=== PATIENT | female | born 1975 | race Caucasian/White ===

== ENCOUNTER 2023-12-23 06:57 | Day surgery (SDC) | payer BC ==
[2023-12-20 16:00] LABS: Anion Gap 6.6 mEq/L (5.0-15.0); Potassium 3.6 mEq/L (3.5-5.1)
--- NOTE | 2023-12-22 16:21 | EKG ---
Test Date: 2023-12-20 Test Time: 15:32:19 Lmft: ET MEASUREMENT RESULTS: Intervals: Rate: 72 CO: 124 QRSD: 82 QT: 386 QTc: 422 Dorothy: P: 36 CO: 124 QRS: 76 T: 71 INTERPRETIVE STATEMENTS: Normal sinus rhythm Normal ECG No previous ECG available for comparison Electronically Signed On 12-22-23 16:17:22 CDT by Pancho Avila
[2023-12-23] MEDS: Ringers Lactate 1,000 ML IV ONE (07:30)
[2023-12-23] MEDS ORDERED: LIDOCAINE 1% MPF 5 ML VIAL ONE (08:05)
[2023-12-23] MEDS ORDERED: propofoL 200 MG/20 ML VIAL IV ONE ×2 (08:05→08:27)
[2023-12-23 10:09] VITALS: BP 108/72; TEMP 97.2; O2SAT 95
== END 2023-12-23 09:30 | disposition home or self-care (01) ==
LOC: OR 06:57
PROVIDERS: ATTEND Surgery
PROC: 0DBN8ZX Excision of Sigmoid Colon, Via Natural or Artificial Opening Endoscopic, Diagnostic (ICD-10-PCS; principal; 2023-12-23 08:00)
DX: Z12.11 Encounter for screening for malignant neoplasm of colon (principal); K57.30 Diverticulosis of large intestine without perforation or abscess without bleeding; K64.8 Other hemorrhoids
CPT/HCPCS: 93005; 80048; 36415; 88305; 45380; J2704 ×2; J2001; J7120